=== PATIENT | female | born 1995 | race African-American/Black ===

== ENCOUNTER 2020-03-03 00:50 | Emergency (ER) | payer SELFPAY ==
[~2020-03-03] VITALS: Ht 165.1 cm; Wt 57.0 kg
[2020-03-03] MEDS ORDERED: ACETAMINOPHEN 325MG TABLET PO ONE (02:45)
[2020-03-03 03:23] VITALS: BP 109/68
== END 2020-03-03 05:33 | disposition home or self-care (01) ==
LOC: ER 00:50
DX: M79.672 Pain in left foot (principal); M79.671 Pain in right foot
CPT/HCPCS: 99283